=== PATIENT | female | born 1990 | race Hispanic/Latino ===

== ENCOUNTER 2016-10-23 12:02 | Inpatient (IN) | payer OTHER ==
[~2016-10-23] VITALS: Ht 154.9 cm; Wt 108.4 kg
[~2016-10-23 12:02] MED LIST: ACYC200O5 PO
[2016-10-23] MEDS ORDERED: Oxytocin 30 Units/500 mL LR Premix IV ONE (13:03)
[2016-10-23] MEDS ORDERED: Lactated Ringer's 1,000 ML IV PRN (14:03)
[2016-10-23] MEDS ORDERED: Lactated Ringer's 1,000 ML IV SCH (14:04)
[2016-10-23] MEDS ORDERED: Oxytocin 10 Unit/mL Inj IM PRN ×2 (14:05)
[2016-10-23] MEDS ORDERED: Oxytocin 30 Units/500 mL LR 30 UNITS in IV Premix 1 EACH IV PRN (14:05)
[2016-10-23] MEDS ORDERED: Methylergonovine 0.2 mg/mL Inj IM PRN ×2 (14:05)
[2016-10-23] MEDS ORDERED: LANOlin HPA 7 Gm Ointment TOPICAL PRN (14:05)
[2016-10-23] MEDS ORDERED: Sodium Chloride LOK Flush 10 mL Syringe IVFLUSH PRN (14:05)
[2016-10-23] MEDS ORDERED: Witch Hazel-Glycerin Pads TOPICAL PRN (14:05)
[2016-10-23] MEDS ORDERED: Benzocaine (Dermoplast) 20% 60 Gm Spray TOPICAL PRN (14:05)
[2016-10-23] MEDS ORDERED: Hemorrhage Kit, Post Partum XX ONE ×2 (14:05)
[2016-10-23] MEDS ORDERED: Carboprost 250 mCg/mL Inj IM PRN ×2 (14:05)
[2016-10-23 14:13] LABS: Mean Corpuscular Hemoglobin 27.6 pg (27.0-35.0); Mean Corpuscular Volume 84.9 fL (81-100)
[2016-10-23] MEDS ORDERED: Ascorbic Acid 500 mg Tablet PO SCH (17:30)
--- NOTE | 2016-10-23 21:00 | HP ---
[address] [address] HISTORY AND PHYSICAL PATIENT: LONDON CABRALES : 1990 MR#: [id number] ADMIT: 10/23/2016 JOB ID: [id number] DATE: 10/23/2016 ADMISSION DIAGNOSIS: Precipitous labor. HISTORY OF PRESENT ILLNESS: Patient is 26 years old, 5, para 3-0-1-3, at 40 weeks gestational age and 1 day by last menstrual period, confirmed by first-trimester ultrasound presented to triage in active labor, delivered within 20 minutes of her triage presentation. PAST OBSTETRIC HISTORY: In 2004, spontaneous . In 2005, 38 weeks ended with spontaneous vaginal delivery. No complications. In 2008, 38 weeks ended with spontaneous vaginal delivery. No complications. In 2012, 38 weeks ended with spontaneous vaginal delivery with no complication and the current . PAST GYNECOLOGIC HISTORY: Prior history of genital HSV, started prophylaxis with valacyclovir at 36 weeks during this . Denied any history of abnormal Pap smears. PAST MEDICAL HISTORY: Morbid obesity and gastroesophageal reflux disease. PAST SURGICAL HISTORY: Insignificant. ALLERGIES: No known drug allergies. MEDICATIONS: 1. vitamins. 2. Valacyclovir 500 mg b.i.d. started at 36 weeks. SOCIAL HISTORY: Denied any alcohol consumption. Denied any drugs of abuse. Denied any cigarette smoking. LABS: A-positive antibody negative, rubella immune, varicella immune, serology nonreactive, hepatitis B surface antigen negative. HIV nonreactive. Urine cultures negative. GC and chlamydia cultures negative. GBS cultures negative. PHYSICAL EXAMINATION: Patient is alert, oriented x3. Vital signs are 91/52 for blood pressure, respirations are 18, pulse is 108, temperature 37.0 degrees centigrade. Cervical exam is 9 cm, dilated cervix, 90% effaced, -1 station, vertex presentation. Small forebag artificial rupture of membranes retrieved thick meconium. Before rupture of membranes, the perineum was inspected and there were no herpetic lesions on the vulva. There were no herpetic lesions on the part of the vagina that was visualized. I could not access the cervix for examination due to advanced cervical dilatation. heart tracing was showing a baseline of 140 beats per minute, positive accelerations, no decelerations, moderate variability. reactive tracing. Precipitous Delivery report: The patient started to push efficiently. Infant's head delivered in right occiput anterior position spontaneously followed by shoulders and rest of the body. Thick meconium observed with delivery. Delayed cord clamping allowed for 60 seconds. placed over mom's chest. Cord clamped and cut. Placenta followed spontaneously. Upon inspection, it was noted to be intact with marginal insertion of a three-vessel cord. Firm uterine fundus at the end of the delivery. No blood clots retrieved. Inspection of the perineum revealed a left periurethral laceration, 5 cc of 1% lidocaine injected for local analgesia, and laceration repaired with a continuous fashion with 3-0 Vicryl suture. The incision was noted to be not involving the urethra. Good hemostasis assured. FINDINGS: Single viable male infant with Apgars 8/9. Weight is still pending. Mom and baby recovering in a stable condition in labor and delivery room. Sponge, needle, and instrument counts were correct x2. Dr. West was present and scrubbed for the entire delivery. ASSESSMENT AND PLAN: The patient is 5, para 4-0-1-4 day number zero, status post precipitous delivery. Afebrile with stable vital signs. see delivery report above. Will start care. ROBERTAD
[2016-10-24 06:43] LABS: Mean Corpuscular Hemoglobin 27.6 pg (27.0-35.0); Mean Corpuscular Volume 87.2 fL (81-100)
[2016-10-24] MEDS ORDERED: ASCO-294 PO (07:46)
[2016-10-24] MEDS ORDERED: IBUP800T28 PO (07:46)
[2016-10-24] MEDS ORDERED: DOCU-41 PO (07:46)
[2016-10-24] MEDS ORDERED: FERR-83 PO (07:46)
--- NOTE | 2016-10-24 07:51 | PCM.DIOB ---
Obstetrical Disch Instruction Dates of Hospitalization Date of Hospital Admission Oct 23, 2016 at 12:26 Providers Admitting Physician: Eitan Tavera MD Primary Care Physician: [facility] Attending Physician: Eitan Tavera MD Diet Discharge Diet: No restrictions Activity Discharge Activity-General: Pelvic Rest for 6 weeks, Balance rest and activity Dressing and Incisional Care Dressing Care: Keep dressing clean, dry & intact Hygiene: May shower, Perineal care Additional Instructions Discharge Instructions Continue your vitamin. Please take the iron and vitamin c together for your anemia. Iron can give you constipation so you have also been given a prescription for docusate to keep you regular. Be sure to follow up in 6 weeks at [facility]. Pelvic rest for 6 weeks (nothing per vagina including intercourse, tampons) If you have a fever greater than 100.4, please call [facility]. There is always someone information technology manager to talk to. If you have an increase in bleeding, call [facility]. If you have a lot of bleeding suddenly, especially if you have symptoms of dizziness & weakness with it, get emergency help. If you start experiencing extreme depression, especially if you feel that you are a danger to yourself or your family, seek emergency help. You have been through a lot -- BE SURE TO TAKE CARE OF YOURSELF. You have been sent home with the following prescriptions: - Colace 100 mg twice a day as needed for constipation. - Ferrous sulfate 325 mg every day. - Vitamin C 500 mg every day. Take with iron. - Ibuprofen 800mg take 1 tab every 8 hours as needed for pain. Take with a meal. Follow-up in 6 weeks with [facility]. Follow Up Plan [facility] Follow-up appointment: Weeks (6) Call your provider for: Fever or Chills, Shortness of breath, Heavy vaginal bleeding, Excessive constipation, Vaginal discomfort, Red painful breasts, Other (swelling in one leg or painful swelling in your legs) Keri Talbot DO Oct 24, 2016 07:49
--- NOTE | 2016-10-25 06:54 | PCM.DC.OB ---
Obstetrical Discharge Summary Date of Service Oct 24, 2016 Date of hospital admission Oct 23, 2016 at 12:26 Date of Discharge: Oct 24, 2016 Providers Admitting Physician: Eitan Tavera MD Primary Care Physician: [facility] Attending Physician: Eitan Tavera MD Diagnosis at Time of Discharge 1. 26 years old, 5, para 3-0-1-3 now , at 40 weeks gestational age and 1 day, who presented to triage in active labor, delivered within 20 minutes of her triage presentation. Status post spontaneous vaginal delivery. 2. Precipitous labor 3. Prior history of genital HSV Problems: Invasive procedures Vaginal delivery Date of Procedure: Oct 23, 2016 Brief History and Physical: From the history and physical performed on 10/23/16: Patient is 26 years old, 5, para 3-0-1-3, at 40 weeks gestational age and 1 day by last menstrual period, confirmed by first-trimester ultrasound presented to triage in active labor, delivered within 20 minutes of her triage presentation. Hospital Course: 1. 26 years old, 5, para 3-0-1-3 now , at 40 weeks gestational age and 1 day, who presented to triage in active labor, delivered within 20 minutes of her triage presentation. Status post spontaneous vaginal delivery. - Pt had a left periurethral laceration during vaginal delivery, which was repaired. - Pt discharged on post- day 1. Her pain was well-controlled. She did not have any nausea, vomiting, dysuria, or leg pain. She was ambulating without any issues. Her uterus was firm on exam. Her lungs were clear to auscultation and heart exam revealed a regular rate and rhythm with normal S1 and S2. Bilateral legs were not tender. 2. Precipitous labor - Delivered within 20 minutes of her triage presentation - Pt had a single viable male with Apgars 8/9 on 10/23/16 3. Prior history of genital HSV - Started prophylaxis with valacyclovir at 36 weeks during the Acyclovir-Expunged Drug, Do Not Renew! (Acyclovir-Expunged Drug, Do Not Renew!) 200 Mg/5 Ml Oral.susp 400 MG PO DAILY (Reported) Ascorbate Calcium (Vitamin C) 500 Mg Tablet 500 MG PO DAILY Prescribed by: EUNICE L LORRI, DO Docusate Sodium (Colace) 100 Mg Capsule 100 MG PO BID PRN PRN For Constipation Prescribed by: EUNICE BLACKMON DO Ferrous Sulfate (Ferrous Sulfate) 325 Mg Tablet 325 MG PO DAILY Prescribed by: EUNICE BLACKMON DO Ibuprofen (Ibuprofen) 800 Mg Tablet 800 MG PO TID PRN PRN For Pain Prescribed by: EUNICE BLACKMON DO Discharge Activity-General: Pelvic Rest for 6 weeks, Balance rest and activity Patient instructions Continue your vitamin. Please take the iron and vitamin c together for your anemia. Iron can give you constipation so you have also been given a prescription for docusate to keep you regular. Be sure to follow up in 6 weeks at [facility]. Pelvic rest for 6 weeks (nothing per vagina including intercourse, tampons) If you have a fever greater than 100.4, please call [facility]. There is always someone rehabilitation worker to talk to. If you have an increase in bleeding, call [facility]. If you have a lot of bleeding suddenly, especially if you have symptoms of dizziness & weakness with it, get emergency help. If you start experiencing extreme depression, especially if you feel that you are a danger to yourself or your family, seek emergency help. You have been through a lot -- BE SURE TO TAKE CARE OF YOURSELF. You have been sent home with the following prescriptions: - Colace 100 mg twice a day as needed for constipation. - Ferrous sulfate 325 mg every day. - Vitamin C 500 mg every day. Take with iron. - Ibuprofen 800mg take 1 tab every 8 hours as needed for pain. Take with a meal. [facility]. copies to: Mily West MD; Eitan Tavera MD, Marissa L DO Oct 24, 2016 08:36
== END 2016-10-24 16:25 | disposition home or self-care (01) | DRG 775 ==
LOC: FBCO 12:02 → FBC 12:26
PROVIDERS: ADMIT Legal Medicine; ATTEND Obstetrics & Gynecology
PROC: 10E0XZZ Delivery of Products of Conception, External Approach (ICD-10-PCS; principal; 2016-10-23)
PROC: 10907ZC Drainage of Amniotic Fluid, Therapeutic from Products of Conception, Via Natural or Artificial Opening (ICD-10-PCS; 2016-10-23)
PROC: 0UQMXZZ Repair Vulva, External Approach (ICD-10-PCS; 2016-10-23)
DX: O62.3 Precipitate labor (principal); O71.82 Other specified trauma to perineum and vulva; Z3A.40 40 weeks gestation of pregnancy; Z37.0 Single live birth